=== PATIENT | female | born 1995 | race Two or more races ===

== ENCOUNTER 2020-04-11 23:15 | Emergency (ER) | payer MEDICAID ==
[~2020-04-11] VITALS: Ht 160 cm; Wt 99.3 kg
[2020-04-11 23:35] VITALS: BP 118/61
[2020-04-12 02:00] LABS: Urine Bacteria FEW /hpf (None Seen); Urine Blood 3+ /uL (Negative); Urine Specific Gravity 1.023 (1.001-1.035); Urine WBC 43 /hpf (0 - 5)
== END 2020-04-12 03:31 | disposition home or self-care (01) ==
LOC: ER 23:18
DX: N39.0 Urinary tract infection, site not specified (principal); R31.9 Hematuria, unspecified; R10.819 Abdominal tenderness, unspecified site
CPT/HCPCS: 81001; 81025